=== PATIENT | male | born 1945 | race Hispanic/Latino ===

== ENCOUNTER → 2023-10-27 | Outpatient (REF) | payer MEDICARE ==
[2023-10-27 11:15] LABS: CREATININE, SERUM 1.02 mg/dL (0.72-1.25)
== END ==
LOC: CT 10:18
PROVIDERS: ATTEND Internal Medicine
DX: C61 Malignant neoplasm of prostate (principal); E55.9 Vitamin D deficiency, unspecified; Z85.528 Personal history of other malignant neoplasm of kidney
CPT/HCPCS: 36415; 71260; 74177; 82565; 84520

== ENCOUNTER → 2024-06-26 | Outpatient (REF) | payer MEDICARE | LOC: CT 13:51 | PROVIDERS: ATTEND Internal Medicine Hematology & Oncology | DX: C61 Malignant neoplasm of prostate (principal); C64.2 Malignant neoplasm of left kidney, except renal pelvis | CPT/HCPCS: 71250; 74176 ==

== ENCOUNTER 2025-04-04 07:11 | Inpatient (IN) | payer MEDICARE ==
[2025-03-30 12:12] LABS: BASOPHILS % 0.3 % (0.0-1.0); EOSINOPHILS % 1.8 % (0.0-6.0); LYMPHOCYTES % 25.8 % (18.0-39.1); MONOCYTES % 7.0 % (4.4-11.3); NEUTROPHILS % 64.9 % (38.7-80.0); RED CELL DISTRIBUTION WIDTH 13.6 % (11.7-14.4)
[2025-03-30 12:53] LABS: EST GLOMERULAR FILTRATION RATE 82.0 ML/MIN (>=60)
[~2025-04-04 07:11] MED LIST: ASPIRIN EC81 MG PO; FINASTERIDE5 MG PO; FLOMAX0.4 MG PO; HYDROXYZIN10 MG/5 ML PO; ISOSORBIDE DINI20 MG PO; LIPITOR10 MG PO; NIFEDIPINE10 MG PO; NITROGLYCERIN0.4 MG SL; PROTONIX20 MG PO; TRAZODONE HCL50 MG PO; VITAMIN D350 MCG PO; ZESTRIL10 MG PO
[2025-04-04] MEDS: CEFTRIAXONE 1 GM VIAL ONE (08:10)
[2025-04-04] MEDS: SODIUM CHLORIDE 0.9% 1000ML 1,000 ML ONE (08:10)
[2025-04-04] MEDS: GENTAMICIN 80MG/NS 100 ML 200 ML IV ONE (08:10)
[2025-04-04] MEDS ORDERED: PROPOFOL IV EMULSION 10 MG/ML 20 ML VIAL ONE (10:04)
[2025-04-04] MEDS ORDERED: FENTANYL CITRATE/PF 100MCG/2 ML INJ ONE (10:04)
[2025-04-04] MEDS ORDERED: ONDANSETRON HCL INJ 2MG/ML 2ML 2 MG/ML VIAL ONE (10:08)
[2025-04-04] MEDS ORDERED: LIDOCAINE HCL 2% LOCAL INJ 5 ML SDV VIAL INJ ONE (10:08)
[2025-04-04] MEDS ORDERED: DEXAMETHASONE SOD PHOS INJ 4 MG/ML SDV ONE (10:08)
[2025-04-04] MEDS ORDERED: ROCURONIUM BROMIDE 1 ML IV ONE (11:08)
[2025-04-04] MEDS ORDERED: SUGAMMADEX SODIUM 200 MG/2 ML VIAL IV ONE (11:41)
[2025-04-04] MEDS ORDERED: FUROSEMIDE INJ 10 MG/ML 4 ML VIAL ONE (12:04)
[2025-04-04] MEDS: FUROSEMIDE INJ 10 MG/ML 4 ML VIAL ONE (12:45)
[2025-04-04] MEDS ORDERED: ACETAMINOPHEN 1000 MG/100 ML IV PRN (13:00)
[2025-04-04] MEDS ORDERED: ONDANSETRON HCL INJ 2MG/ML 2ML 2 MG/ML VIAL IV PRN (13:00)
[2025-04-04] MEDS ORDERED: DIPHENHYDRAMINE HCL 25 MG CAP PO PRN (13:00)
[2025-04-04] MEDS ORDERED: PHENAZOPYRIDINE HCL 100 MG TAB PO PRN (13:00)
[2025-04-04 13:31] LABS: BASOPHILS % 0.2 % (0.0-1.0); EOSINOPHILS % 1.0 % (0.0-6.0); LYMPHOCYTES % 21.7 % (18.0-39.1); MONOCYTES % 3.3 % (4.4-11.3); NEUTROPHILS % 73.6 % (38.7-80.0); RED CELL DISTRIBUTION WIDTH 13.6 % (11.7-14.4)
[2025-04-04 14:00] LABS: EST GLOMERULAR FILTRATION RATE 80.0 ML/MIN (>=60)
[2025-04-04] MEDS: HYDRALAZINE HCL 20 MG/ML VIAL ONE (14:00)
[2025-04-04 15:30] VITALS: BP 156/86; PULSE 85; RESP 18; TEMP 98.1; O2SAT 95
[2025-04-04 16:06] VITALS: BP 156/86; PULSE 85; RESP 18; TEMP 98.1; O2SAT 92
[2025-04-04] MEDS ORDERED: HYDROXYZIN10 MG/5 ML PO (16:18)
[2025-04-04] MEDS ORDERED: FINASTERIDE5 MG PO (16:18)
[2025-04-04] MEDS ORDERED: NITROGLYCERIN0.4 MG SL (16:18)
[2025-04-04] MEDS ORDERED: ATORVASTATIN CA20 MG PO (16:18)
[2025-04-04] MEDS ORDERED: LISINOPRIL10 MG PO (16:18)
[2025-04-04] MEDS ORDERED: VITAMIN D31250 MCG PO (16:18)
[2025-04-04] MEDS ORDERED: PANTOPRAZOLE SO20 MG PO (16:18)
[2025-04-04] MEDS ORDERED: FLOMAX0.4 MG PO (16:18)
[2025-04-04] MEDS ORDERED: ZETIA10 MG PO (16:18)
[2025-04-04] MEDS ORDERED: NIFEDIPINE ER60 M1 PO (16:18)
[2025-04-04] MEDS ORDERED: HYDROXYZINE HCL25 MG PO (16:18)
[2025-04-04] MEDS ORDERED: ASPIRIN325 MG PO (16:18)
[2025-04-04] MEDS: SENNA-S TABLET PO SCH (17:40)
[2025-04-04] MEDS: SODIUM CHLORIDE 0.9% 1000ML 1,000 ML IV SCH (17:40)
[2025-04-04 20:00] VITALS: BP 171/77; PULSE 66; RESP 18; RESP 19; TEMP 97.7; O2SAT 93
[2025-04-04] MEDS ORDERED: SEVOFLURANE INHAL SOLN 250 ML PEN BTL ONE (22:09)
[2025-04-05] VITALS (9 sets, daily range): BP systolic 163–172; BP diastolic 68–87; PULSE 50–57; RESP 17–21; TEMP 97.6–98.1; O2SAT 93–97
[2025-04-05] MEDS: TRAZODONE HCL 50 MG TAB PO ONE (00:40)
[2025-04-05 05:37] LABS: BASOPHILS % 0.1 % (0.0-1.0); EOSINOPHILS % 0.0 % (0.0-6.0); LYMPHOCYTES % 9.6 % (18.0-39.1); MONOCYTES % 6.0 % (4.4-11.3); NEUTROPHILS % 84.0 % (38.7-80.0); RED CELL DISTRIBUTION WIDTH 13.7 % (11.7-14.4)
[2025-04-05 05:45] LABS: EST GLOMERULAR FILTRATION RATE 75.0 ML/MIN (>=60)
[2025-04-05] MEDS ORDERED: HYDRALAZINE HCL 25 MG TAB PO PRN (10:15)
[2025-04-05] MEDS ORDERED: HYDROXYZINE HCL 10 MG TAB PO PRN (10:15)
[2025-04-05] MEDS ORDERED: ACETAMINOPHEN 325 MG TAB PO PRN (10:15)
[2025-04-05] MEDS ORDERED: ONDANSETRON HCL INJ 2MG/ML 2ML 2 MG/ML VIAL IV PRN (10:15)
[2025-04-05] MEDS ORDERED: NITROGLYCERIN 0.4 MG SUBL SL SCH (10:15)
[2025-04-05] MEDS: FINASTERIDE 5 MG TAB PO SCH (11:14)
[2025-04-05] MEDS: NIFEDIPINE CR 30 MG TAB PO SCH (11:15)
[2025-04-05] MEDS: LISINOPRIL 20 MG TAB PO SCH (11:16)
[2025-04-05] MEDS: ACETAMINOPHEN/CODEINE 300MG - 30MG TAB PO PRN (11:24)
[2025-04-05] MEDS: TAMSULOSIN HCL 0.4 MG CAP PO SCH (16:47)
[2025-04-05] MEDS: ATORVASTATIN 20 MG TAB PO SCH (20:08)
[2025-04-05] MEDS: TRAZODONE HCL 50 MG TAB PO PRN (22:10)
[2025-04-06 05:21] LABS: BASOPHILS % 0.2 % (0.0-1.0); EOSINOPHILS % 1.4 % (0.0-6.0); LYMPHOCYTES % 18.2 % (18.0-39.1); MONOCYTES % 8.3 % (4.4-11.3); NEUTROPHILS % 71.7 % (38.7-80.0); RED CELL DISTRIBUTION WIDTH 14.1 % (11.7-14.4)
[2025-04-06 05:47] LABS: EST GLOMERULAR FILTRATION RATE 82.0 ML/MIN (>=60)
[2025-04-06 08:00] VITALS: BP 153/69; PULSE 57; RESP 16; TEMP 98.4
[2025-04-06 09:00] VITALS: BP 153/69; PULSE 57; RESP 16; TEMP 98.4; O2SAT 96
[2025-04-06] MEDS: EZETIMIBE 10 MG TAB PO SCH (09:02)
[2025-04-06] MEDS: PANTOPRAZOLE SODIUM 20 MG TABLET.DR PO SCH (09:02)
[2025-04-06 12:00] VITALS: BP 155/72; PULSE 63; RESP 15; TEMP 97.9
[2025-04-06 16:00] VITALS: BP 159/78; PULSE 86; RESP 18; TEMP 98.1
== END 2025-04-06 18:30 | disposition home or self-care (01) | DRG 713 ==
LOC: OR 07:11 → PACU V 13:00 → MED/SURG 13:20
PROVIDERS: ADMIT Internal Medicine; ATTEND Internal Medicine
PROC: 0TBC8ZZ Excision of Bladder Neck, Via Natural or Artificial Opening Endoscopic (ICD-10-PCS; 2025-04-04)
PROC: 0T7D8ZZ Dilation of Urethra, Via Natural or Artificial Opening Endoscopic (ICD-10-PCS; 2025-04-04)
PROC: 0T9B70Z Drainage of Bladder with Drainage Device, Via Natural or Artificial Opening (ICD-10-PCS; 2025-04-04)
PROC: BT141ZZ Fluoroscopy of Kidneys, Ureters and Bladder using Low Osmolar Contrast (ICD-10-PCS; 2025-04-04)
PROC: 0VB08ZZ Excision of Prostate, Via Natural or Artificial Opening Endoscopic (ICD-10-PCS; principal; 2025-04-04 10:55)
DX: N40.1 Benign prostatic hyperplasia with lower urinary tract symptoms (principal); D62 Acute posthemorrhagic anemia; N13.8 Other obstructive and reflux uropathy; N32.0 Bladder-neck obstruction; N35.919 Unspecified urethral stricture, male, unspecified site; C61 Malignant neoplasm of prostate; E89.3 Postprocedural hypopituitarism; R31.0 Gross hematuria; E66.9 Obesity, unspecified; Z68.28 Body mass index [BMI] 28.0-28.9, adult; Z90.5 Acquired absence of kidney; Z87.440 Personal history of urinary (tract) infections; Z82.49 Family history of ischemic heart disease and other diseases of the circulatory system
CPT/HCPCS: 36415; 74420; 80048; 83735; 85025; 87086; 88305; 93005; 94799; C1758; J0360; J0696; J1100; J1580; J1938; J2003; J2405; J3410; J7030